=== PATIENT | female | born 1975 | race Two or more races ===

== ENCOUNTER → 2023-04-15 | Emergency (ER) | payer OTHER ==
[~2023-04-15] VITALS: Ht 149.9 cm; Wt 63.5 kg
[~2023-04-15] MED LIST: AMLODIPINE-OLM1 EAC3 PO
== END | disposition home or self-care (01) ==
LOC: ER 22:08
DX: M79.672 Pain in left foot (principal)
CPT/HCPCS: 73630; 96372; 99283; J1885